=== PATIENT | female | born 1995 | race Caucasian/White ===

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

== ENCOUNTER 2021-08-02 19:34 | Emergency (ER) | payer OTHER ==
[2021-08-02 19:40] VITALS: BP 113/70; PULSE 102; TEMP 97.9; BMI 23.8
== END 2021-08-02 21:14 | disposition home or self-care (01) ==
LOC: JER 19:34
DX: R05.9 Cough, unspecified (principal)
CPT/HCPCS: 71046-TC-FY; 99283-25

== ENCOUNTER 2021-08-20 12:43 | Emergency (ER) | payer OTHER ==
[2021-08-20 13:00] VITALS: BP 119/64; PULSE 77; TEMP 99.9; BMI 24.1
[2021-08-20] MEDS ORDERED: KETOROLAC TROMETHAMINE 30 MG/1 ML VIAL IVPUSH ONE (14:12)
[2021-08-20] MEDS ORDERED: SODIUM CHLORIDE 0.9% 500 ML INFUS.BAG IV ONE (14:12)
[2021-08-20] MEDS ORDERED: METOCLOPRAMIDE HCL INJECTION 10 MG/2 ML VIAL IVPUSH ONE (14:12)
[2021-08-20] MEDS ORDERED: METOCLOPRAMIDE HCL INJECTION 10 MG/2 ML VIAL ONE (14:22)
[2021-08-20] MEDS ORDERED: KETOROLAC TROMETHAMINE 30 MG/1 ML VIAL ONE (14:22)
[2021-08-20 15:28] LABS: BASO % 0.4 % (0-2.0); HEMATOCRIT 39.8 % (32.4-45.2); HEMOGLOBIN 13.6 GM/dL (10.7-15.3); LYMPH % 19.2 % (8-40); MCH 30.9 pg (25.7-33.7); MEAN CELL VOLUME 90.6 fl (80-96); MEAN PLT VOLUME 7.6 fl (7.5-11.1); NEUT % 65.4 % (42.8-82.8); PLATELET COUNT 241 10^3/uL (134-434); RDW 13.2 % (11.6-15.6)
[2021-08-20 15:48] LABS: ALBUMIN 4.1 g/dl (3.4-5.0); BLOOD UREA NITROGEN 10.1 mg/dL (7-18); CALCIUM 8.7 mg/dL (8.5-10.1)
[2021-08-20 15:50] LABS: CREATININE 0.7 mg/dL (0.55-1.3)
[2021-08-20 15:53] LABS: BILIRUBIN,TOTAL 0.2 mg/dL (0.2-1); TOT PROT 7.7 g/dl (6.4-8.2)
== END 2021-08-20 16:22 | disposition home or self-care (01) ==
LOC: JER 12:43
PROC: 3E0333Z Introduction of Anti-inflammatory into Peripheral Vein, Percutaneous Approach (ICD-10-PCS; principal; 2021-08-20)
PROC: 3E033GC Introduction of Other Therapeutic Substance into Peripheral Vein, Percutaneous Approach (ICD-10-PCS; 2021-08-20)
DX: R51.9 Headache, unspecified (principal); R11.10 Vomiting, unspecified; R05.1 Acute cough
CPT/HCPCS: 0241U-QW; 36415; 80053; 83690; 85025; 93005; 93010; 99284-25

== ENCOUNTER 2022-01-12 20:37 | Emergency (ER) | payer OTHER ==
[2022-01-12 20:41] VITALS: BP 106/63; PULSE 120; RESP 20; TEMP 100.6; BMI 24.1
[2022-01-12] MEDS ORDERED: IBUPROFEN 600 MG TABLET (FP) PO ONE ×2 (21:28→21:35)
[2022-01-12] MEDS ORDERED: ONDANSETRON *ODT* 4 MG TABLET SL ONE (21:28)
[2022-01-12] MEDS ORDERED: ONDANSETRON *ODT* 4 MG TABLET ONE (21:35)
== END 2022-01-12 22:40 | disposition home or self-care (01) ==
LOC: JER 20:37
DX: J02.9 Acute pharyngitis, unspecified (principal)
CPT/HCPCS: 87651; 99283-25; Q0162

== ENCOUNTER 2024-03-09 16:22 | Emergency (ER) | payer OTHER ==
[2024-03-09 16:28] VITALS: BP 110/72; PULSE 100; RESP 20; TEMP 98.5; BMI 24.8
[2024-03-09] MEDS ORDERED: ONDANSETRON 4 MG/2 ML VIAL ONE (17:01)
[2024-03-09] MEDS: ONDANSETRON 4 MG/2 ML VIAL IVPUSH ONE (17:36)
[2024-03-09] MEDS ORDERED: ACETAMINOPHEN INJECTION 100 ML ONE (17:39)
[2024-03-09] MEDS: SODIUM CHLORIDE 0.9% 500 ML INFUS.BAG IV ONE (17:45)
[2024-03-09] MEDS: ACETAMINOPHEN 1000 MG/100 ML BAG IVPB ONE (17:46)
[2024-03-09 17:51] LABS: BASO % 0.4 % (0-2.0); EOS % 0.5 % (0-4.5); HEMATOCRIT 40.8 % (32.4-45.2); HEMOGLOBIN 13.2 GM/dL (10.7-15.3); LYMPH % 31.3 % (8-40); MCH 29.6 pg (25.7-33.7); MCHC 32.4 g/dl (32.0-36.0); MEAN CELL VOLUME 91.5 fl (80-96); MEAN PLT VOLUME 7.9 fl (7.5-11.1); MONO % 5.9 % (3.8-10.2); NEUT % 61.9 % (42.8-82.8); PLATELET COUNT 247 10^3/uL (134-434); RBC 4.46 M/mm3 (3.60-5.2); RDW 13.6 % (11.6-15.6); WHITE BLOOD COUNT 9.2 K/mm3 (4.0-10.0)
[2024-03-09 17:53] LABS: EPI CELLS 8 /uL (0-25.1); HYALINE CASTS 0 /uL (0-3.1); PH,URINE 5.5 (5.0-8.0); URINE APPEARANCE CLEAR; URINE BACTERIA 66 /uL (0-1359); URINE BILIRUBIN NEGATIVE (NEGATIVE); URINE COLOR YELLOW; URINE GLUCOSE (UA) NEGATIVE (NEGATIVE); URINE KETONE TRACE (NEGATIVE); URINE LEUK ESTERASE NEGATIVE (NEGATIVE); URINE NITRITE NEGATIVE (NEGATIVE); URINE PROTEIN NEGATIVE (NEGATIVE); URINE RBC 28 /uL (0-23.9); URINE UROBILINOGEN 0.2 mg/dL (0.2-1.0); URINE WBC 6 /uL (0-25.8)
[2024-03-09 18:18] LABS: CALCIUM 9.6 mg/dL (8.5-10.1)
[2024-03-09 18:19] LABS: ALBUMIN 4.2 g/dl (3.4-5.0); BLOOD UREA NITROGEN 9.3 mg/dL (7-18)
[2024-03-09 18:22] LABS: CREATININE 0.8 mg/dL (0.55-1.3)
[2024-03-09 18:23] LABS: BILIRUBIN,TOTAL 0.5 mg/dL (0.2-1)
[2024-03-09 18:24] LABS: TOT PROT 7.6 g/dl (6.4-8.2)
== END 2024-03-09 21:43 | disposition home or self-care (01) ==
LOC: JER 16:22
PROC: 3E033NZ Introduction of Analgesics, Hypnotics, Sedatives into Peripheral Vein, Percutaneous Approach (ICD-10-PCS; principal; 2024-03-09)
DX: K52.9 Noninfective gastroenteritis and colitis, unspecified (principal); R11.2 Nausea with vomiting, unspecified; Z20.822 Contact with and (suspected) exposure to COVID-19
CPT/HCPCS: 0241U-QW; 36415; 74177-TC; 80053; 81003; 83690; 84703; 85025; 87086; 99285-25; J0131

== ENCOUNTER 2024-06-26 06:59 | Emergency (ER) | payer OTHER ==
[2024-06-26 07:09] VITALS: TEMP 99.7; BMI 26.5
[2024-06-26] MEDS ORDERED: guaiFENesin/D-METHORPHAN HB 10 ML UNIT-DOSE CUPS ONE (07:37)
[2024-06-26] MEDS ORDERED: IBUPROFEN 400 MG TABLET (FP) PO ONE (07:37)
[2024-06-26] MEDS: IBUPROFEN 400 MG TABLET (FP) PO ONE (07:40)
[2024-06-26] MEDS: guaiFENesin/D-METHORPHAN HB 10 ML UNIT-DOSE CUPS PO ONE (07:40)
[2024-06-26 07:47] LABS: THROAT:GRP A STREP NOT DETECTED (NOTDETECTED)
[2024-06-26 08:11] VITALS: BP 96/55; PULSE 110; RESP 18
== END 2024-06-26 08:22 | disposition home or self-care (01) ==
LOC: JER 06:59 → JERFT 06:59
DX: U07.1 COVID-19 (principal); J06.9 Acute upper respiratory infection, unspecified; R50.9 Fever, unspecified; R05.9 Cough, unspecified; R51.9 Headache, unspecified
CPT/HCPCS: 0241U-QW; 87651; 99283-25